=== PATIENT | female | born 1985 | race Caucasian/White ===

== ENCOUNTER 2019-01-30 17:57 | Emergency (ER) | payer SELFPAY ==
[~2019-01-30] VITALS: Ht 160 cm; Wt 63.5 kg
[~2019-01-30 17:57] MED LIST: DEPAKOTE500 MG PO; EFFEXOR XR150 MG PO; FLOMAX0.4 MG PO; MIRALAX17 GM PO; NORCO 5-325 TA1 EACH PO; PERCOCET 5-3251 EACH PO; STRATTERA40 MG PO; VALACYCLOVIR1000 MG PO; VALACYCLOVIR500 MG PO; VALIUM5 MG PO; ZOFRAN4 MG PO
[2019-01-30] MEDS ORDERED: BACTRIM DS TAB1 EACH PO (21:20)
== END 2019-01-30 21:35 | disposition home or self-care (01) ==
LOC: ED 17:57
PROC: 0X953ZZ Drainage of Left Axilla, Percutaneous Approach (ICD-10-PCS; principal; 2019-01-30)
DX: L02.412 Cutaneous abscess of left axilla (principal); F90.9 Attention-deficit hyperactivity disorder, unspecified type; Z88.8 Allergy status to other drugs, medicaments and biological substances; Z79.899 Other long term (current) drug therapy
CPT/HCPCS: 10060; 87070; 87077; 87186; 87205; 99283-25

== ENCOUNTER 2019-02-08 14:00 | Emergency (ER) | payer SELFPAY ==
[~2019-02-08] VITALS: Ht 160 cm; Wt 63.5 kg
[~2019-02-08 14:00] MED LIST changes: +BACTRIM DS TAB1 EACH PO
--- OUTSIDE RECORDS SUMMARY | 2019-02-08 14:04 | XMS ---
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 Swathi has no Care Guidelines for this patient. Matthew VISIT COUNT (12 MO.) 2 [facility] [place] [facility] TOTAL 2 NOTE: Visits indicate total known visits. ED/C VISIT TRACKING (12 MO.) 02/08/2019 14:[address] [facility] [place] TYPE: Emergency COMPLAINT: - MEDICATION WITHDRAWLS 01/30/2019 17:[address] 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
[2019-02-08] MEDS ORDERED: EFFEXOR XR150 MG PO (14:22)
== END 2019-02-08 14:28 | disposition home or self-care (01) ==
LOC: ED 14:00
DX: Z76.0 Encounter for issue of repeat prescription (principal); F31.9 Bipolar disorder, unspecified; F90.9 Attention-deficit hyperactivity disorder, unspecified type; F17.200 Nicotine dependence, unspecified, uncomplicated; Z79.899 Other long term (current) drug therapy
CPT/HCPCS: 99281

== ENCOUNTER 2020-09-06 19:23 | Emergency (ER) | payer SELFPAY ==
[~2020-09-06] VITALS: Ht 160 cm; Wt 63.5 kg
[2020-09-06] MEDS ORDERED: CEPHALEXIN500 MG PO (23:33)
== END 2020-09-06 23:49 | disposition home or self-care (01) ==
LOC: ED 19:23
PROC: 0H91XZZ Drainage of Face Skin, External Approach (ICD-10-PCS; principal; 2020-09-06)
DX: L02.01 Cutaneous abscess of face (principal); F17.200 Nicotine dependence, unspecified, uncomplicated; Z88.8 Allergy status to other drugs, medicaments and biological substances
CPT/HCPCS: 10060; 70481; 84703; 99283-25; J0696; Q9967

== ENCOUNTER 2020-12-23 12:08 | Emergency (ER) | payer SELFPAY ==
[~2020-12-23] VITALS: Ht 160 cm; Wt 63.5 kg
[~2020-12-23 12:08] MED LIST changes: +CEPHALEXIN500 MG PO
== END 2020-12-23 18:41 | disposition home or self-care (01) ==
LOC: ED 12:08
DX: F19.129 Other psychoactive substance abuse with intoxication, unspecified (principal); Z20.822 Contact with and (suspected) exposure to COVID-19; F17.200 Nicotine dependence, unspecified, uncomplicated; Z88.8 Allergy status to other drugs, medicaments and biological substances
CPT/HCPCS: 80053; 81001; 85025; 99284; C9803; G0480; J7030; U0003

== ENCOUNTER 2024-07-03 23:24 | Emergency (ER) | payer OTHER ==
[~2024-07-03] VITALS: Ht 160 cm; Wt 60.8 kg
[~2024-07-03 23:24] MED LIST changes: +CLINDAMYCIN HC150 MG PO; +DOXYCYCLINE HY100 MG PO; +METHADOSE40 MG PO; +NARCAN4 MG NAS
--- OUTSIDE RECORDS SUMMARY | 2024-07-03 23:25 | XMS ---
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 Swathi has no Care Guidelines for this patient. Matthew [facility] (12 MO.) [facility] T[facility] 3 NOTE: Visits indicate total known visits. ED/C VISIT TRACKING (12 MO.) 07/03/2024 23:[address] [facility] [place] TYPE: Emergency COMPLAINT: - WOUND CHECK 06/26/2024 09:51 [facility] [place] TYPE: Emergency COMPLAINT: - SKIN PROBLEM 04/18/2024 07:28 [facility] [place] TYPE: Emergency COMPLAINT: - CHEST PAIN INPATIENT VISIT TRACKING (12 MO.) 06/26/2024 13:23 [facility] [place] TYPE: [facility] COMPLAINT: - CELLULITIS DIAGNOSES: - Allergy status to other drugs, medicaments and biological substances - Allergy status to other drugs, medicaments and biological substances - Bipolar disorder, unspecified - Bipolar disorder, unspecified - Cellulitis of buttock - Cellulitis of buttock - Cutaneous abscess of buttock - Nicotine dependence, cigarettes, uncomplicated - Nicotine dependence, cigarettes, uncomplicated - Opioid abuse, uncomplicated - Opioid abuse, uncomplicated - Other long-term (current) drug therapy - Other long-term (current) drug therapy - Other specified behavioral and emotional disorders with onset usually occurring in childhood and adolescence - Other specified behavioral and emotional disorders with onset usually occurring in childhood and adolescence - Other specified postprocedural states - Other specified postprocedural states - Other stimulant abuse, uncomplicated - Other stimulant abuse, uncomplicated - Personal history of Methicillin resistant Staphylococcus aureus infection - Personal history of Methicillin resistant Staphylococcus aureus infection 04/18/2024 13:00 [facility] [place] TYPE: Critical Care COMPLAINT: - PNA DIAGNOSES: - Allergy status to other drugs, medicaments and biological substances - Allergy status to other drugs, medicaments and biological substances - Bipolar disorder, unspecified - Bipolar disorder, unspecified - Homelessness unspecified - Homelessness unspecified - Nicotine dependence, cigarettes, uncomplicated - Nicotine dependence, cigarettes, uncomplicated - Opioid use, unspecified with withdrawal - Opioid use, unspecified with withdrawal - Other specified behavioral and emotional disorders with onset usually occurring in childhood and adolescence - Other specified behavioral and emotional disorders with onset usually occurring in childhood and adolescence - Other specified postprocedural states - Other specified postprocedural states - Pneumonia, unspecified organism - Sepsis, unspecified organism - Sepsis, unspecified organism [email or web address]
[2024-07-04 00:37] VITALS: BP 129/78
== END 2024-07-04 00:41 | disposition home or self-care (01) ==
LOC: ED 23:24
DX: Z48.01 Encounter for change or removal of surgical wound dressing (principal); F17.200 Nicotine dependence, unspecified, uncomplicated; Z88.8 Allergy status to other drugs, medicaments and biological substances
CPT/HCPCS: 99282